=== PATIENT | female | born 1990 | race African-American/Black ===

== ENCOUNTER 2019-01-06 10:51 | Emergency (ER) | payer OTHER ==
[~2019-01-06] VITALS: Ht 157.5 cm; Wt 85.7 kg
[2019-01-06 11:32] LABS: ABSOLUTE NEUTROPHILS 3.1 thou/uL (1.4-8.2); BASOPHILS 0.5 % (0.0-2.0); EOSINOPHILS 0.8 % (0.0-3.0); HEMATOCRIT 41.5 % (37.0-47.0); HEMOGLOBIN 14.3 gm/dL (12.0-15.0); LYMPHOCYTES 42.6 % (24.0-44.0); MCH 32.2 pg (26.0-34.0); MCHC 34.3 g/dL (28.0-37.0); MCV 93.8 fL (80.0-100.0); MONOCYTES 7.1 % (1.0-8.0); PLATELET COUNT 272 thou/uL (150-400); RBC 4.43 mil/uL (4.20-5.00); RDW 13.4 % (10.5-14.5); WBC 6.3 thou/uL (4.0-11.0)
[2019-01-06 11:42] LABS: CALCIUM 8.9 mg/dL (8.5-10.1); CREATININE 0.7 mg/dL (0.6-1.0); POTASSIUM 3.6 mmol/L (3.5-5.1)
[2019-01-06 15:25] VITALS: BP 123/78
[2019-01-06] MEDS ORDERED: ONDANSETRON HCL4 M2 PO (15:25)
== END 2019-01-06 15:36 | disposition home or self-care (01) ==
LOC: ER 10:51
PROVIDERS: Nurse Practitioner Family
DX: Z04.41 Encounter for examination and observation following alleged adult rape (principal); F10.129 Alcohol abuse with intoxication, unspecified